=== PATIENT | female | born 1980 | race Caucasian/White ===

== ENCOUNTER → 2020-11-14 | Outpatient (CLI) | payer BC ==
[~2020-11-14] MED LIST: ACCUFLORA PROBIOTIC; ATEN25 PO; ATEN50 PO; AVIANE; ECONAZOLE 1%; ESCI5 PO; FLUT.05NI; LORA1 PO; OMEP20ER PO
[2020-11-15 18:10] LABS: HPV 16 Negative (Negative); HPV 18 Negative (Negative); HPV OTHER HR TYPES Negative (Negative)
== END ==
LOC: LAB SHORT 12:07
PROVIDERS: Registered Nurse Community Health
DX: Z12.4 Encounter for screening for malignant neoplasm of cervix (principal); N93.8 Other specified abnormal uterine and vaginal bleeding
CPT/HCPCS: 87624; 88305; G0123

== ENCOUNTER 2021-04-10 10:26 | Inpatient (IN) | payer OTHER ==
[~2021-04-10] VITALS: Ht 172.7 cm; Wt 77.1 kg
[2021-04-10] MEDS ORDERED: LISI20 PO (10:54)
[2021-04-10] MEDS ORDERED: HYDCHL25 PO (10:55)
[2021-04-10 11:14] LABS: BASOPHILS ABSOLUTE AUTO 0.02 K/mm3 (0.00-0.23); BASOPHILS PERCENT AUTO 0 % (0-2); EOSINOPHILS ABSOLUTE AUTO 0.03 K/mm3 (0.00-0.68); EOSINOPHILS PERCENT AUTO 1 % (0-6); IMMATURE GRAN ABSOLUTE AUTO 0.02 K/mm3 (0.00-0.10); IMMATURE GRAN PERCENT AUTO 0 % (0-1); LYMPHOCYTES ABSOLUTE AUTO 1.49 K/mm3 (0.84-5.20); LYMPHOCYTES PERCENT AUTO 23 % (21-46); MONOCYTES PERCENT AUTO 9 % (4-13); Mean Corpuscular HGB 21.9 pg (26.0-34.0); Mean Corpuscular HGB Conc 29.1 g/dL (31.5-36.5); Mean Corpuscular Volume 76 fL (80-100); Mean Platelet Volume 11.1 fL (9.1-12.4); NEUTROPHILS ABSOLUTE AUTO 4.43 K/mm3 (1.96-9.15); NEUTROPHILS PERCENT AUTO 67 % (41-73); Platelet Count 345 K/mm3 (150-400); RDW Coefficient Variation 17.5 % (11.7-14.2); RDW Standard Deviation 48.1 fL (35.1-46.3); Red Blood Cell Count 2.37 M/mm3 (3.80-5.20); White Blood Cell Count 6.59 K/mm3 (4.00-11.30)
[2021-04-10 11:24] LABS: Beta HCG, Quantitative, Serum <1 mIU/mL (0-3); Magnesium, Blood 2.1 mg/dL (1.6-2.4)
[2021-04-10 11:26] LABS: Hematocrit 17.9 % (33.0-51.0); Hemoglobin 5.2 g/dL (11.5-16.0)
[2021-04-10 11:56] LABS: International Normalized Ratio 0.98; Prothrombin Time Results 10.3 Sec (9.7-11.5)
[2021-04-10 16:56] LABS: Hematocrit 22.2 % (33.0-51.0); Mean Corpuscular HGB 25.1 pg (26.0-34.0); Mean Corpuscular HGB Conc 31.5 g/dL (31.5-36.5); Mean Corpuscular Volume 80 fL (80-100); Mean Platelet Volume 10.6 fL (9.1-12.4); Platelet Count 281 K/mm3 (150-400); RDW Coefficient Variation 19.9 % (11.7-14.2); RDW Standard Deviation 57.4 fL (35.1-46.3); Red Blood Cell Count 2.79 M/mm3 (3.80-5.20)
[2021-04-11 02:22] LABS: Influenza A, PCR NEGATIVE (NEGATIVE); Influenza B, PCR NEGATIVE (NEGATIVE); Resp Syncytial Virus, PCR NEGATIVE (NEGATIVE); SARS-Cov-2 (COVID-19) PCR, MMC NEGATIVE (NEGATIVE)
--- NOTE | 2021-04-11 03:04 | NUR ---
PT NPO AT 0200. STARTED INFUSING LR AT 100ML/HR TOLERATING WELL. COVID TEST DONE. PT IS NEGATIVE FOR COVID. SCANT MARGE BLOOD NOTED ON PAD. VOIDING WELL.
[2021-04-11 04:45] LABS: Hematocrit 21.5 % (33.0-51.0); Hemoglobin 6.7 g/dL (11.5-16.0)
--- NOTE | 2021-04-11 04:47 | NUR ---
SHIFT SUMMARY: PT IN BED AAOX4. VS WNL WITH NO SIGNS OF DISTRESS NOTED. PT DENIES PAIN JUST FEELING A LITTLE NAUSEA. UP TP BATHROOM WITH ASSIST VIODED WELL. SCANT MARGE BLOOD NOTED ON PAD THOUGHTOUT NIGHT. NPO AT 0200. LR INFUSING ORDERED IV PATENT. WILL CONTINUE TO MONITOR AND MAINTAIN ALL PRECAUTIONS.
--- NOTE | 2021-04-11 09:25 | NUR ---
DENIES ANY DIZZINESS OR PAIN, AMBULATING INDEPENDENTLY TO THE BATHROOM, REPORTS VAGINAL BLEEDING HAS "SLOWED DOWN" TODAY, PLAN FOR OR LATER TODAY PER DR. CARDOSO.
--- NOTE | 2021-04-11 11:23 | NUR ---
VSS, TOLERATING TRANSFUSION WELL, DENIES ANY DISCOMFORT.
--- NOTE | 2021-04-11 13:51 | NUR ---
PRBC TRANSFUSION COMPLETED, VSS, TOLERATED WELL, LUNGS CLEAR, PT TAKEN TO DAY SURGERY.
--- NOTE | 2021-04-11 16:32 | NUR ---
04/11/21 1632 Gely Rodrigues COUNTS CORRECT.
--- NOTE | 2021-04-11 17:24 | NUR ---
ARRIVED FROM PACU VIA CRYSTAL, S/P ABLATION PER INFERTILITY NURSE, PERIPAD IN PLACE, NO DRAINAGE NOTED, PT ASSITED TO VOID IN THE TOILET, PT ABLE TO VOID W/ MILD DISCOMFORT, SLIGHTLY DROWSY, AMBULATED W/ STANDBY ASSIST TO THE BATHROOM, DENIES ANY PAIN OR NAUSEA, REPORTS HAVING SOME SLIGHT CRAMPING, DENIES ANY NEED FOR PAIN MEDS AT THIS TIME.
--- NOTE | 2021-04-11 18:21 | NUR ---
TOLERATING REGULAR DIET WELL, 1 PERCOCET GIVEN FOR C/O CRAMPING ON LOWER ABD, VSS, NO VAGINAL BLEEDING NOTED, NO ACUTE CHANGES THIS SHIFT.
[2021-04-12 04:36] LABS: BASOPHILS PERCENT AUTO 0 % (0-2); EOSINOPHILS PERCENT AUTO 0 % (0-6); Hematocrit 26.3 % (33.0-51.0); Hemoglobin 8.3 g/dL (11.5-16.0); IMMATURE GRAN ABSOLUTE AUTO 0.05 K/mm3 (0.00-0.10); IMMATURE GRAN PERCENT AUTO 1 % (0-1); LYMPHOCYTES ABSOLUTE AUTO 0.61 K/mm3 (0.84-5.20); LYMPHOCYTES PERCENT AUTO 8 % (21-46); MONOCYTES ABSOLUTE AUTO 0.82 K/mm3 (0.16-1.47); MONOCYTES PERCENT AUTO 11 % (4-13); Mean Corpuscular HGB 25.5 pg (26.0-34.0); Mean Corpuscular HGB Conc 31.6 g/dL (31.5-36.5); Mean Corpuscular Volume 81 fL (80-100); Mean Platelet Volume 10.4 fL (9.1-12.4); NEUTROPHILS PERCENT AUTO 81 % (41-73); Platelet Count 320 K/mm3 (150-400); RDW Coefficient Variation 18.9 % (11.7-14.2); RDW Standard Deviation 55.3 fL (35.1-46.3); Red Blood Cell Count 3.25 M/mm3 (3.80-5.20); White Blood Cell Count 7.68 K/mm3 (4.00-11.30)
[2021-04-12 05:02] LABS: Percent Saturation 6.3 % (15.0-50.0)
--- NOTE | 2021-04-12 06:27 | NUR ---
POD 1 S/P UTERINE ABLATION. PT RESTING IN BED AT THIS TIME; VSS T/O NIGHT. PT REP SCANT VAGINAL BLEEDING, CHANGED ANUJ PAD X1. ABD SOFT TO PALP. PT VOIDING W/O DIFFICULTY. PT DID C/O LOWER ABD CRAMPING, REP LESS PAINFUL THIS AM. PAIN MGD W/PERCOCET W/REP RELIEF. PT LG REG PO, NO N/V. PT DENIED DIZZINESS WHEN UP. PLAN TO D/C HOME TODAY.
[2021-04-12] MEDS ORDERED: Percocet 5-3251 EACH PO (15:45)
[2021-04-12] MEDS ORDERED: IBUP400 PO (15:46)
[2021-04-12] MEDS ORDERED: PROM25 PO (15:47)
--- NOTE | 2021-04-12 16:29 | NUR ---
DISCHARGE PT DISCHARGED HOME FROM UNIT AT APROX 1630. PT GIVEN WRITTEN AND VERBAL DISCHARGE INSTRUCTIONS AND VERBALIZED UNDERSTANDING. WRITTEN RX FOR PAIN MEDICATION GIVEN TO PT, COPY IN CHART. IV REMOVED, PT TOLERATED WELL. PT VOIDING W/O DIFFICULTY, TOLERATING PO WITH NO N/V, AMBULATING INDEPENDENTLY. WC ASSIST TO CAR.
== END 2021-04-12 16:33 | disposition home or self-care (01) | DRG 742 ==
LOC: ER 10:26 → SURS 16:53
PROVIDERS: Student in an Organized Health Care Education/Training Program; ADMIT Obstetrics & Gynecology
PROC: 30233N1 Transfusion of Nonautologous Red Blood Cells into Peripheral Vein, Percutaneous Approach (ICD-10-PCS; 2021-04-11)
PROC: 0U5B8ZZ Destruction of Endometrium, Via Natural or Artificial Opening Endoscopic (ICD-10-PCS; principal; 2021-04-11 14:15)
PROC: 0UDB8ZZ Extraction of Endometrium, Via Natural or Artificial Opening Endoscopic (ICD-10-PCS; 2021-04-11 14:15)
DX: N93.8 Other specified abnormal uterine and vaginal bleeding (principal); D62 Acute posthemorrhagic anemia; Z20.822 Contact with and (suspected) exposure to COVID-19; I10 Essential (primary) hypertension; F41.9 Anxiety disorder, unspecified; Z88.0 Allergy status to penicillin; Z88.1 Allergy status to other antibiotic agents; Z79.899 Other long term (current) drug therapy; Z79.82 Long term (current) use of aspirin; Z90.49 Acquired absence of other specified parts of digestive tract
CPT/HCPCS: 0241U; 36415; 36430; 71045; 82728; 83540; 83550; 83735; 83880; 84484; 84702; 85014; 85018; 85025; 85027; 85610; 85730; 86850; 86900; 86901; 86923; 88305; 93005; 93010; 99285-25; A9270; J0690; J1100; J2210; J2250; J2370; J2405; J2704; J2765; J3010; J7030; J7050; J7120; P9016